=== PATIENT | female | born 2005 | race American Indian/Alaskan Native ===

== ENCOUNTER 2025-10-28 23:51 | Emergency (ER) | payer MEDICAID, SELFPAY ==
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
[2025-10-29 00:06] VITALS: BP 143/96; PULSE 112; PULSE 99; RESP 18; TEMP 36.4; O2SAT 97; O2SAT 98; BMI 21.7
--- NOTE | 2025-10-29 00:21 | PC.NURSE ---
[employer] OFFICER AT BEDSIDE SPEAKING WITH PATIENT
[2025-10-29] MEDS: DIPHTH,PERTUSS(ACELL),TET VAC 0.5 ML SYR- ADULT IMi (01:24)
[2025-10-29] MEDS: BACITRACIN OINT 1 GM PACKET TOP (01:25)
[2025-10-29] MEDS: IBUPROFEN TAB 400 MG TABLET PO (01:25)
== END 2025-10-29 01:34 | disposition home or self-care (01) ==
LOC: SERX 10-29 02:28
PROVIDERS: Emergency Provider Emergency Medicine; PCP Physician Assistant
DX: T14.8XXA Other injury of unspecified body region, initial encounter (principal); Y04.0XXA Assault by unarmed brawl or fight, initial encounter; Z23 Encounter for immunization
CPT/HCPCS: 90471; 90715; 99281; A9270